=== PATIENT | female | born 1980 | race Caucasian/White ===

== ENCOUNTER 2019-06-11 20:15 | Emergency (ER) | payer MEDICAID ==
[~2019-06-11] VITALS: Ht 162.6 cm; Wt 72.6 kg
[2019-06-11 20:34] VITALS: BP_SYST 124
--- NOTE | 2019-06-11 20:34 | NUR ---
Patient triaged and placed in waiting room. VSS and patient appears in no acute distress at this time. Accompanied by SO, awaiting available bed, and MD notified of need for MSE.
--- NOTE | 2019-06-11 23:00 | NUR ---
Patient to ER bed 2 to gown for evaluation. Side rails up.
--- NOTE | 2019-06-11 23:10 | NUR ---
Pt came to the ED for 2 days of intermittent fever and body aches. Reports pt is 11 weeks . Denies ABD pain or bleeding. Reports she took tylenol with some relief. States body aches are 4/10. No other complaints/injuries noted. Will cont. to monitor.
--- NOTE | 2019-06-11 23:10 | NUR ---
ER at bedside examining patient.
--- NOTE | 2019-06-11 23:20 | NUR ---
Patient given written and verbal discharge instructions and verbalizes understanding. ER MD Dr. Squires discussed with patient the results and treatment provided. Patient in stable condition. ID arm band removed. Rx of tamiflu given. Patient educated on pain management and to follow up with PMD. Pain Scale 0/10. Opportunity for questions provided and answered. Medication side effect fact sheet provided.
[2019-06-11 23:30] VITALS: BP_SYST 124
== END 2019-06-11 23:20 | disposition home or self-care (01) ==
LOC: SED 20:15
DX: O98.511 Other viral diseases complicating pregnancy, first trimester (principal); J10.1 Influenza due to other identified influenza virus with other respiratory manifestations; Z3A.11 11 weeks gestation of pregnancy
CPT/HCPCS: 36415; 81025; 86710; 99283

== ENCOUNTER 2019-06-25 18:31 | Inpatient (IN) | payer MEDICAID ==
[~2019-06-25] VITALS: Ht 165.1 cm; Wt 73.9 kg
[2019-06-25 18:33] VITALS: BP_SYST 155
--- NOTE | 2019-06-25 18:36 | NUR ---
Patient to ER bed 03 to gown for evaluation. Side rails up.
--- NOTE | 2019-06-25 18:50 | NUR ---
ER Dr. Joe at bedside examining patient.
--- NOTE | 2019-06-25 18:55 | NUR ---
Patient presents to ER C/O abdominal pain. Patient A&Ox4, ambulatory to ER, skin pink and warm, afebrile, nausea, vomiting, denies Diarrhea, pain 8/10. Patient states she took tylenol with codeine x2 today for dental pain; dentist appointment tomorrow. Patient states upper abdominal pain w/nausea & vomit today and patient states she is 3 months and has Hx of bowel obstruction sx.
[2019-06-25] MEDS ORDERED: fentaNYL CITRATE/PF 100 MCG/2 ML AMP IVP ONE ×2 (19:00→21:00)
[2019-06-25] MEDS ORDERED: ONDANSETRON HCL 4 MG/2 ML VIAL IVP ONE (19:00)
--- NOTE | 2019-06-25 19:20 | NUR ---
Report to Ro UMANZOR
[2019-06-25 19:31] LABS: BASOPHILS % (AUTO) 0.2 % (0.0-2.0); EOSINOPHILS % (AUTO) 0.4 % (0.0-4.0); HEMATOCRIT 35.1 % (36-48); HEMOGLOBIN 11.7 g/dL (12.0-16.0); LYMPHOCYTES % (AUTO) 14.8 % (20.5-51.5); MEAN CORPUSCULAR HEMOGLOBIN 31 pg (27-31); MEAN CORPUSCULAR HGB CONC 33 % (32-36); MEAN CORPUSCULAR VOLUME 93 fL (79.0-98.0); MONOCYTES # (AUTO) 0.4 K/uL (0.0-1.0); MONOCYTES % (AUTO) 5.8 % (1.7-9.3); NEUTROPHILS # (AUTO) 5.5 K/uL (1.8-7.7); NEUTROPHILS % (AUTO) 78.8 % (40.0-70.0); PLATELET COUNT (AUTO) 245 K/uL (130-430); RED BLOOD CELL COUNT(AUTO) 3.76 MIL/uL (4.2-6.2); RED CELL DISTRIBUTION WIDTH 15.5 % (9.0-15.0)
[2019-06-25 19:50] LABS: BILIRUBIN,URINE NEGATIVE (NEGATIVE); BLOOD, URINE NEGATIVE (NEGATIVE); COLOR,URINE YELLOW (YELLOW); GLUCOSE,URINE NEGATIVE (NEGATIVE); KETONES,URINE NEGATIVE (NEGATIVE); LEUKOCYTE ESTERASE ,URINE NEGATIVE (NEGATIVE); NITRITE, URINE NEGATIVE (NEGATIVE); PH,URINE 5.5 (5.0-8.0); PROTEIN URINE NEGATIVE (NEGATIVE); UROBILINOGEN,URINE 0.2 (0.2-1.0)
--- NOTE | 2019-06-25 19:50 | NUR ---
Pt wants to make sure medications are safe for . Asked Dr. Joe if it is ok. Dr. Joe states, "Yes it safe." Informed patient that it is ok for patient. Pt ok with medication administration.
[2019-06-25 19:54] LABS: CALCIUM 8.4 mg/dL (8.4-11.0); CREATININE 0.49 mg/dL (0.55-1.30); POTASSIUM 3.6 mmol/L (3.5-5.1)
[2019-06-25 19:58] LABS: CLARITY/URINE HAZY (CLEAR)
[2019-06-25 20:00] LABS: ALBUMIN 3.3 g/dL (3.4-4.8); TOTAL BILIRUBIN 0.3 mg/dL (0.0-1.0)
[2019-06-25 20:07] LABS: RBC,URINE NONE SEEN /HPF (0-3)
[2019-06-25 20:08] LABS: BACTERIA,URINE FEW /HPF (None Seen); WBC,URINE 0-3 /HPF (0-3)
--- NOTE | 2019-06-25 20:48 | NUR ---
Pt resting comfortably in bed, no signs of acute distress. Will cont. to monitor.
[2019-06-25] MEDS ORDERED: DIPHENHYDRAMINE INJ 50 MG/ML VIAL IVP ONE (21:00)
--- NOTE | 2019-06-25 21:00 | NUR ---
Pt resting comfortably in bed, no signs of acute distress. WIll cont. to monitor.
--- NOTE | 2019-06-25 22:00 | NUR ---
Pt resting comfortably in bed, no signs of acute distress. WIll cont. to monitor.
--- NOTE | 2019-06-25 23:00 | NUR ---
Pt resting comfortably in bed, no signs of acute distress. WIll cont. to monitor.
[2019-06-25] MEDS ORDERED: PNV11TAB PO (23:54)
[2019-06-26] MEDS ORDERED: ONDANSETRON HCL 4 MG/2 ML VIAL IVP PRN (00:15)
[2019-06-26] MEDS ORDERED: KCL 20 mEq in D5/0.45NS 1000mL 1,000 ML IV SCH (00:15)
--- NOTE | 2019-06-26 00:17 | NUR ---
Note mannie in ED - 06/26/19 at 0038 by [email or web address] Patient will be admitted to care of Dr. Stevenson. Admitted to MS unit. Will go to room 135. Belongings list completed. Complete and up to date summary report printed. SBAR report to be given at bedside with opportunity for questions.
[2019-06-26] MEDS ORDERED: MORPHINE 4 MG/ML INJ. SYRINGE IVP PRN (00:45)
--- NOTE | 2019-06-26 00:50 | NUR ---
ADMISSION NOTE Received patient from ER via jody, received report from GERMAN UMANZOR. Patient admitted with diagnosis of ABDOMINAL PAIN. Patient oriented to hospital routine, call light, toileting and safety-patient verbalized understanding.
[2019-06-26 00:56] VITALS: BP_SYST 107
[2019-06-26] MEDS ORDERED: AMOX250C PO (01:02)
--- NOTE | 2019-06-26 01:30 | NUR ---
ADMISSION PHYSICAL ASSESSMENT NOTES; took over care from nurse Beltran, admitted for abdominal pain. pt. is 3 months . oriented to room, use of call light. awake, alert and oriented. pain tolerable at this time, was medicated for pain in ER. IV lock on rt. antecubital, will start IVF of D5 LR. no shortness of breath. moves extremities well. ambulated to the restroom. needs attended. kept NPO as ordered.call light within reach.
--- NOTE | 2019-06-26 01:50 | NUR ---
CONSULT: CONSULT CALLED FOR DR. MIESHA VYAS IS SADDLE TREE STITCHER THIS MORNING REASON FOR CONSULT: ABD PAIN / GALLBLADDER REQUESTING CONSULT: DR. GARCIA MUSIC REHABILITATION THERAPIST PHONE NUMBER: [phone]
--- NOTE | 2019-06-26 01:54 | NUR ---
CONSULT: CONSULT CALLED FOR DR. CHAPPELL I SPOKE WITH ABIODUN NAGY REASON FOR CONSULT: ABD. PAIN / GALLBLADDER REQUESTING CONSULT: DR. GARCIA GARBAGE STOKER PHONE NUMBER: [phone]
[2019-06-26] MEDS: D5LR 1,000 ML IV SCH ×4 (02:01→21:13)
--- NOTE | 2019-06-26 03:41 | NUR ---
NOTES: pt. checked and sleeping quietly. needs attended. condition observed.call light at bedside.
--- NOTE | 2019-06-26 04:13 | NUR ---
NOTES: pt. awakened and c/o of her rt. molar tooth aching and some abdominal pain, medicated with Morphine IV as ordered. repositioned self for comfort. IVF continuous.
--- NOTE | 2019-06-26 05:15 | NUR ---
NOTES: pt. woke up with abdominal pain, rt. tooth pain gone, ambulates to the restroom. positioned self on her stomach, warm pad blanket given for her stomach, pt. said it went away, come and goes. IVF continuous. IV rate @ 150 cc/hr. remain NPO.
--- NOTE | 2019-06-26 06:30 | NUR ---
CLOSING NOTES; pt. able to go back to sleep.kept NPO. IVF infusing. for further care and assistance. will endorse to day shift.
[2019-06-26 07:10] LABS: BASOPHILS % (AUTO) 0.2 % (0.0-2.0); EOSINOPHILS # (AUTO) 0.1 K/uL (0.0-0.4); EOSINOPHILS % (AUTO) 1.2 % (0.0-4.0); HEMATOCRIT 30.2 % (36-48); HEMOGLOBIN 10.2 g/dL (12.0-16.0); LYMPHOCYTES # (AUTO) 0.7 K/uL (1.0-5.5); LYMPHOCYTES % (AUTO) 13.8 % (20.5-51.5); MEAN CORPUSCULAR HEMOGLOBIN 31 pg (27-31); MEAN CORPUSCULAR HGB CONC 34 % (32-36); MEAN CORPUSCULAR VOLUME 93 fL (79.0-98.0); MONOCYTES # (AUTO) 0.3 K/uL (0.0-1.0); MONOCYTES % (AUTO) 5.5 % (1.7-9.3); NEUTROPHILS # (AUTO) 3.9 K/uL (1.8-7.7); NEUTROPHILS % (AUTO) 79.3 % (40.0-70.0); PLATELET COUNT (AUTO) 181 K/uL (130-430); RED BLOOD CELL COUNT(AUTO) 3.26 MIL/uL (4.2-6.2); RED CELL DISTRIBUTION WIDTH 15.5 % (9.0-15.0); WHITE BLOOD COUNT (AUTO) 4.9 K/uL (4.8-10.8)
[2019-06-26 07:23] LABS: ALBUMIN 2.6 g/dL (3.4-4.8); CALCIUM 8.2 mg/dL (8.4-11.0); CREATININE 0.49 mg/dL (0.55-1.30); POTASSIUM 3.6 mmol/L (3.5-5.1); TOTAL BILIRUBIN 0.3 mg/dL (0.0-1.0)
--- NOTE | 2019-06-26 07:29 | NUR ---
Opening Note received bedside SBAR report from overnight houseperson RN, patient resting in bed, patient reports pain is controlled at this time, respirations even and unlabored on room air, educated patient on use of call light and asked to call for assistance, patient verbalized understanding, call light in reach, educated patient on use of bed alarm for patient safety, patient refusing bed alarm, bed in low and locked position.
[2019-06-26 08:00] VITALS: BP_SYST 95
--- NOTE | 2019-06-26 08:15 | NUR ---
Physician Rounds Dr. Castillo at bedside examining patient.
[2019-06-26] MEDS ORDERED: PRENATAL VITS W-CA,FE,FA(<1MG) (PRENATAL) TABLET PO SCH (09:00)
--- NOTE | 2019-06-26 09:32 | NUR ---
Physician Rounds Dr. Rollins at bedside examining patient, per Dr. Rollins patient can be started on a clear liquid diet, provided patient with water.
[2019-06-26] MEDS: PANTOPRAZOLE SODIUM 40 MG TAB PO SCH (09:33)
--- NOTE | 2019-06-26 10:07 | NUR ---
Physician Rounds Dr. Rangel at bedside examining patient.
--- NOTE | 2019-06-26 11:45 | NUR ---
RN Rounds patient resting in bed, respirations even and unlabored on room air, patient reports pain is controlled, no acute distress noted, patients fiance at bedside.
[2019-06-26] MEDS: MORPHINE 2 MG/ML INJ. SYRINGE IVP PRN (11:57)
--- NOTE | 2019-06-26 12:37 | NUR ---
DCPA and Social Service contact: ASSEMBLY LINE INSPECTOR met with Pt. at bedside for DCPA. Pt. was alert and oriented, she was admitted to [facility] for Acute Abdominal Pain. Pt. is 13 weeks , she is employed and has adequate family support at home. Person to notify is her mark Chawlacedo . Pt. has [place] [facility]. She has not picked a PCP but she is receiving care and her OBGYN is Dr. Rangel. Pt. was attending to her own ADLs, she does not utilize any DME. Pt. has not utilized any HH/ SNF in the past. DCP is to return home at previous level of functioning. DCP/CM/SS will remain available as needed.
[2019-06-26 12:38] VITALS: BP_SYST 94
[2019-06-26] MEDS: MORPHINE SULFATE 10 MG/ML VIAL IVP PRN ×2 (13:29→17:44)
--- NOTE | 2019-06-26 14:03 | NUR ---
Spoke with Physician Spoke with Dr. Rangel, informed him that patient reports taking antibiotics for her tooth infection, new medication orders received, verified with telephone read back.
[2019-06-26] MEDS: AMOXICILLIN 500 MG CAPSULE PO SCH ×2 (14:35→21:08)
--- NOTE | 2019-06-26 15:00 | NUR ---
DCPA and Inspection Clerk contact NETWORK ENGINEER met with Pt. at bedside for DCPA and SS contact. Pt. was alert and oriented, was admitted to [facility] for segment myocardial infraction. Pt. supports himself through SSI, he is currently living in his car, in addition to utilizing winter shelters. He was residing at [facility] and his car is parked there. Person to notify is his sister Nika Fischer who lives in [place] . Pt. cope [place] [facility] and Medicare Part B only. PCP is Dr. Reeves, he has a case technician through [facility] . He utilizes a walker for mobility and tends to his own ADLs, he reported he also needs a replacement nebulizer pump. Pt. is diabetic and had a stroke a year ago. Pt. reported that he was in a SNF, does not recall the name in [place] approximately 2 months ago, he does not want to go to a SNF again they take everything from your check and I left because it was loud and I couldnt sleep. He prefers to live in his car and in connected to homeless penit[facility] and [facility]. NETWORK ENGINEER provided him with homeless resources list for additional info and support. DCP is to return home at previous level of functioning. DCP/CM/SS will remain available as needed. Addendum: 06/26/19 at 1631 by Les Hylton LCSW Disregard note Error in Entry Wrong Pt.
--- NOTE | 2019-06-26 15:15 | NUR ---
RN Rounds patient resting in bed, respirations even and unlabored on room air, patient reports pain is controlled, no acute distress noted, IV fluids infusing well, no redness or swelling noted at IV site.
[2019-06-26 16:21] VITALS: BP_SYST 98
--- NOTE | 2019-06-26 17:50 | NUR ---
Pain Management/Medication patient complaint of pain to right tooth and upper abdomen, patient requesting PRN pain medication, educated patient on use and side effects of PRN morphine, patient verbalized understanding, tolerated medication administration well, no acute distress noted.
--- NOTE | 2019-06-26 19:12 | NUR ---
Closing Note bedside SBAR report given to receiving RN, patient resting in bed, patient reports pain is controlled, no acute distress noted, educated patient on use of call light and asked to call for assistance, patient verbalized understanding, call light in reach, educated patient on use of bed alarm for patient safety, patient refusing bed alarm, bed in low and locked position, care endorsed to casino shift manager RN.
--- NOTE | 2019-06-26 19:30 | NUR ---
CHANGE OF SHIFT; pt. alert, awake, just finished eating her dinner, pt. pain better. IVF infusing. no acute distress. will reassess later. call light within reach.
[2019-06-26 20:30] VITALS: BP_SYST 103
--- NOTE | 2019-06-26 20:30 | NUR ---
NOTES: VS checked with low grade fever T 100.3, feels warm and feverish. pt. ambulated to the restroom. no pain at this time. IVF infusing via rt. antecubital with D5LR @ 150 cc/hr. pt. needs attended. will start on po antibiotic. call light within reach. will call MD for Tylenol prn.
--- NOTE | 2019-06-26 21:44 | NUR ---
NOTES: Dr. Rangel called back and informed him about the fever. Tylenol po prn ordered, will wait till pharmacist verify.
[2019-06-26] MEDS ORDERED: ACETAMINOPHEN 325 MG TABLET PO PRN (21:45)
--- NOTE | 2019-06-26 22:52 | NUR ---
NOTES: Tylenol po 650 mg given for Temp 100.3. instructed to drink lots of fluids. pt. fiancee at bedside. ambulated to the restroom. IVF continuous.
[2019-06-27 00:30] VITALS: BP_SYST 116
--- NOTE | 2019-06-27 00:30 | NUR ---
NOTES: rechecked temp. 98.4.
[2019-06-27] MEDS: MORPHINE 2 MG/ML INJ. SYRINGE IVP PRN ×2 (01:26→08:39)
--- NOTE | 2019-06-27 01:26 | NUR ---
NOTES: pt. called. c/o abdominal pain, medicated with Morphine IV 5/10 pain scale.
--- NOTE | 2019-06-27 02:30 | NUR ---
NOTES: pt. checked, noted relief from pain. continue to monitor.
[2019-06-27] MEDS: D5LR 1,000 ML IV SCH ×2 (04:49→10:05)
--- NOTE | 2019-06-27 05:00 | NUR ---
NOTES: pt. been sleeping, awakened more blanket, feeling cold.
--- NOTE | 2019-06-27 06:37 | NUR ---
CLOSING NOTES; pt. still asleep, IV continuous. no further complaints. for further care and assistance. call light within reach.
[2019-06-27 07:27] LABS: BASOPHILS % (AUTO) 0.3 % (0.0-2.0); HEMOGLOBIN 10.1 g/dL (12.0-16.0); LYMPHOCYTES # (AUTO) 0.7 K/uL (1.0-5.5); MEAN CORPUSCULAR HEMOGLOBIN 32 pg (27-31); MEAN CORPUSCULAR HGB CONC 34 % (32-36); MEAN CORPUSCULAR VOLUME 94 fL (79.0-98.0); MONOCYTES # (AUTO) 0.4 K/uL (0.0-1.0); MONOCYTES % (AUTO) 9.1 % (1.7-9.3); NEUTROPHILS # (AUTO) 3.6 K/uL (1.8-7.7); NEUTROPHILS % (AUTO) 74.6 % (40.0-70.0); PLATELET COUNT (AUTO) 191 K/uL (130-430); RED BLOOD CELL COUNT(AUTO) 3.21 MIL/uL (4.2-6.2); RED CELL DISTRIBUTION WIDTH 15.5 % (9.0-15.0); WHITE BLOOD COUNT (AUTO) 4.8 K/uL (4.8-10.8)
[2019-06-27 07:56] LABS: CALCIUM 7.8 mg/dL (8.4-11.0); POTASSIUM 4.6 mmol/L (3.5-5.1)
[2019-06-27 07:57] LABS: ALBUMIN 2.6 g/dL (3.4-4.8); CREATININE 0.46 mg/dL (0.55-1.30); TOTAL BILIRUBIN 0.1 mg/dL (0.0-1.0)
[2019-06-27 08:00] VITALS: BP_SYST 90
--- NOTE | 2019-06-27 08:00 | NUR ---
Note Pt sitting up in bed to eat her breakfast. No SOB/resp distress or pain/discomfort noted at this time. IV in right AC intact and patent infusing IVF's well. No needs noted at this time. Call light within reach.
[2019-06-27 08:15] LABS: BILIRUBIN,DIRECT 0.1 mg/dL (0.0-0.3)
[2019-06-27] MEDS: PANTOPRAZOLE SODIUM 40 MG TAB PO SCH (08:33)
[2019-06-27] MEDS: AMOXICILLIN 500 MG CAPSULE PO SCH (08:33)
--- NOTE | 2019-06-27 09:00 | NUR ---
Note Dr Rangel at pt's bedside at 0835am. MD answered pt's questions/concerns at this time. gave pt [place] prescription for pain till Sunday - when pt goes for root canal. Pt ambulates to restroom independently and with steady gait. Pt denies any needs at this time. Call light within reach.
[2019-06-27 10:33] VITALS: BP_SYST 101
[2019-06-27] MEDS ORDERED: HYDR-4272 PO (11:03)
--- NOTE | 2019-06-27 11:40 | NUR ---
NOTE Pt resting in bed at this time. Pt was given discharge instructions and questions/concerns were answered at this time. Pt's right IV was dc'd - site benign, no bleeding/redness/drainage/odor noted at this time. Pt states she will get into street clothes at noon.
--- NOTE | 2019-06-27 12:35 | NUR ---
Note Pt off the floor with her fiance and all belongings/discharge paperwork. Pt checked side table and drawers for belongings. Pt had her prescription and cellphone in hand. Pt stable. No abdominal pain/discomfort or SOB/resp distress noted. Pt was dressed in street clothes. Pt ambulated to private car.
== END 2019-06-27 12:35 | disposition home or self-care (01) | DRG 566 ==
LOC: SED 18:31 → SMU 06-26 00:08
PROVIDERS: ADMIT Obstetrics & Gynecology; ATTEND Obstetrics & Gynecology
DX: O99.611 Diseases of the digestive system complicating pregnancy, first trimester (principal); K81.0 Acute cholecystitis; Z3A.13 13 weeks gestation of pregnancy
CPT/HCPCS: 36415; 74018; 76700-TC; 80053; 81000-TC; 82150-TC; 82248-TC; 83690-TC; 85025; 96374; 96375; 96376; 99285; J1200; J2270; J2405; J3010; J7120

== ENCOUNTER 2019-10-15 18:51 | Inpatient (IN) | payer MEDICAID ==
[~2019-10-15] VITALS: Ht 165.1 cm; Wt 81.4 kg
[~2019-10-15 18:51] MED LIST: AMOX250C PO; HYDR-4272 PO; PNV11TAB PO
[2019-10-15 18:55] VITALS: BP_SYST 116
[2019-10-15] MEDS ORDERED: ACETAMINOPHEN 325 MG TABLET PO ONE (20:15)
[2019-10-15 20:34] LABS: BASOPHILS % (AUTO) 0.1 % (0.0-2.0); EOSINOPHILS % (AUTO) 0.2 % (0.0-4.0); HEMATOCRIT 31.2 % (36-48); HEMOGLOBIN 10.5 g/dL (12.0-16.0); LYMPHOCYTES # (AUTO) 0.7 K/uL (1.0-5.5); LYMPHOCYTES % (AUTO) 8.6 % (20.5-51.5); MEAN CORPUSCULAR HEMOGLOBIN 32 pg (27-31); MEAN CORPUSCULAR HGB CONC 34 % (32-36); MEAN CORPUSCULAR VOLUME 94 fL (79.0-98.0); MONOCYTES # (AUTO) 0.6 K/uL (0.0-1.0); NEUTROPHILS # (AUTO) 6.7 K/uL (1.8-7.7); NEUTROPHILS % (AUTO) 84.1 % (40.0-70.0); PLATELET COUNT (AUTO) 236 K/uL (130-430); RED BLOOD CELL COUNT(AUTO) 3.33 MIL/uL (4.2-6.2); RED CELL DISTRIBUTION WIDTH 13.7 % (9.0-15.0)
[2019-10-15] MEDS ORDERED: ENOXAPARIN SODIUM 80 MG/0.8 ML SYRINGE SUBCUT ONE (21:00)
[2019-10-15 21:10] LABS: INR 0.9 (0.8-1.2); PROTHROMBIN TIME 9.1 SECS (9.5-12.5)
[2019-10-15 21:13] LABS: ALBUMIN 2.3 g/dL (3.4-4.8); CALCIUM 8.3 mg/dL (8.4-11.0); CREATININE 0.59 mg/dL (0.55-1.30); POTASSIUM 4.3 mmol/L (3.5-5.1); TOTAL BILIRUBIN 0.2 mg/dL (0.0-1.0)
[2019-10-15 22:20] LABS: BILIRUBIN,URINE 1+ (NEGATIVE); BLOOD, URINE NEGATIVE (NEGATIVE); GLUCOSE,URINE NEGATIVE (NEGATIVE); KETONES,URINE 1+ (NEGATIVE); LEUKOCYTE ESTERASE ,URINE NEGATIVE (NEGATIVE); NITRITE, URINE NEGATIVE (NEGATIVE); PROTEIN URINE TRACE (NEGATIVE)
[2019-10-15 22:28] LABS: CLARITY/URINE HAZY (CLEAR); COLOR,URINE AMBER (YELLOW)
[2019-10-15 22:35] VITALS: BP_SYST 107
[2019-10-15 22:49] LABS: BACTERIA,URINE FEW /HPF (None Seen); RBC,URINE 0-3 /HPF (0-3)
[2019-10-16 00:58] VITALS: BP_SYST 93
[2019-10-16] MEDS ORDERED: ACETAMINOPHEN 325 MG TABLET PO ONE (02:30)
[2019-10-16] MEDS ORDERED: *LOVENOX 1MG/KG Q12H/PHARMACY XX ONE (06:00)
[2019-10-16] MEDS: ENOXAPARIN SODIUM 80 MG/0.8 ML SYRINGE SUBCUT SCH ×2 (06:15→17:24)
[2019-10-16 08:00] VITALS: BP_SYST 105
[2019-10-16] MEDS: PRENATAL VITS W-CA,FE,FA(<1MG) (PRENATAL) TABLET PO SCH (08:24)
[2019-10-16 10:53] LABS: BASOPHILS % (AUTO) 0.3 % (0.0-2.0); EOSINOPHILS % (AUTO) 0.5 % (0.0-4.0); HEMOGLOBIN 9.9 g/dL (12.0-16.0); LYMPHOCYTES # (AUTO) 0.7 K/uL (1.0-5.5); LYMPHOCYTES % (AUTO) 9.7 % (20.5-51.5); MEAN CORPUSCULAR HEMOGLOBIN 32 pg (27-31); MEAN CORPUSCULAR HGB CONC 34 % (32-36); MEAN CORPUSCULAR VOLUME 93 fL (79.0-98.0); MONOCYTES # (AUTO) 0.6 K/uL (0.0-1.0); MONOCYTES % (AUTO) 8.3 % (1.7-9.3); NEUTROPHILS # (AUTO) 5.5 K/uL (1.8-7.7); NEUTROPHILS % (AUTO) 81.2 % (40.0-70.0); PLATELET COUNT (AUTO) 213 K/uL (130-430); RED BLOOD CELL COUNT(AUTO) 3.11 MIL/uL (4.2-6.2); RED CELL DISTRIBUTION WIDTH 13.3 % (9.0-15.0); WHITE BLOOD COUNT (AUTO) 6.7 K/uL (4.8-10.8)
[2019-10-16 12:24] VITALS: BP_SYST 97
[2019-10-16 15:14] LABS: CALCIUM 8.3 mg/dL (8.4-11.0); CREATININE 0.61 mg/dL (0.55-1.30)
[2019-10-16 16:25] VITALS: BP_SYST 101
[2019-10-16] MEDS: ACETAMINOPHEN 325 MG TABLET PO PRN ×2 (17:29→23:44)
[2019-10-16 19:00] VITALS: BP_SYST 100
[2019-10-16 20:00] VITALS: BP_SYST 100
[2019-10-17 01:14] VITALS: BP_SYST 100
[2019-10-17] MEDS: ACETAMINOPHEN 325 MG TABLET PO PRN ×2 (04:16→09:42)
[2019-10-17] MEDS: ENOXAPARIN SODIUM 80 MG/0.8 ML SYRINGE SUBCUT SCH (05:58)
[2019-10-17 07:18] LABS: BASOPHILS % (AUTO) 0.3 % (0.0-2.0); EOSINOPHILS % (AUTO) 0.6 % (0.0-4.0); HEMATOCRIT 27.4 % (36-48); HEMOGLOBIN 9.3 g/dL (12.0-16.0); LYMPHOCYTES # (AUTO) 0.9 K/uL (1.0-5.5); LYMPHOCYTES % (AUTO) 11.7 % (20.5-51.5); MEAN CORPUSCULAR HEMOGLOBIN 32 pg (27-31); MEAN CORPUSCULAR HGB CONC 34 % (32-36); MEAN CORPUSCULAR VOLUME 94 fL (79.0-98.0); MONOCYTES # (AUTO) 0.6 K/uL (0.0-1.0); MONOCYTES % (AUTO) 7.8 % (1.7-9.3); NEUTROPHILS % (AUTO) 79.6 % (40.0-70.0); PLATELET COUNT (AUTO) 223 K/uL (130-430); RED BLOOD CELL COUNT(AUTO) 2.91 MIL/uL (4.2-6.2); RED CELL DISTRIBUTION WIDTH 13.5 % (9.0-15.0); WHITE BLOOD COUNT (AUTO) 7.5 K/uL (4.8-10.8)
[2019-10-17 07:44] LABS: ALBUMIN 1.9 g/dL (3.4-4.8); CALCIUM 8.2 mg/dL (8.4-11.0); CREATININE 0.65 mg/dL (0.55-1.30); POTASSIUM 4.8 mmol/L (3.5-5.1); TOTAL BILIRUBIN 0.2 mg/dL (0.0-1.0)
[2019-10-17 08:18] VITALS: BP_SYST 104
[2019-10-17] MEDS: PRENATAL VITS W-CA,FE,FA(<1MG) (PRENATAL) TABLET PO SCH (08:34)
[2019-10-17 12:20] VITALS: BP_SYST 103
[2019-10-17 14:02] VITALS: BP_SYST 104
== END 2019-10-17 14:45 | disposition home or self-care (01) | DRG 566 ==
LOC: SED 18:51 → SMU 21:29
PROVIDERS: ADMIT Obstetrics & Gynecology; ATTEND Obstetrics & Gynecology
DX: O22.33 Deep phlebothrombosis in pregnancy, third trimester (principal); I82.412 Acute embolism and thrombosis of left femoral vein; I82.432 Acute embolism and thrombosis of left popliteal vein; Z3A.28 28 weeks gestation of pregnancy
CPT/HCPCS: 36415; 80048; 80053; 81000-TC; 85025; 85610-TC; 85730-TC; 87086; 93306; 93971; 96372; 99285; J1650